=== PATIENT | male | born 1970 | race American Indian/Alaskan Native ===

== ENCOUNTER 2018-11-29 13:25 | Emergency (ER) | payer OTHER ==
[2018-11-29 13:41] VITALS: BP 125/79
--- NOTE | 2018-11-29 13:43 | Event Note ---
ED Screening Note Date of service: 11/29/18 Time: 13:40 ED Screening Note: 48 y/o male comes in for chest pain, abdominal pain and headache times 1 week. Does not have a doctor here. This initial assessment/diagnostic orders/clinical plan/treatment(s) is/are subject to change based on patients health status, clinical progression and re- assessment by fellow clinical providers in the ED. Further treatment and workup at subsequent clinical providers discretion. Patient/guardian urged not to elope from the ED as their condition may be serious if not clinically assessed and managed. Initial orders include:
[2018-11-29 14:01] LABS: Basophils % (Auto) 0.7 % (0.0-1.8); Eosinophils % (Auto) 0.5 % (0.0-4.3); Hemoglobin 14.5 gm/dl (11.8-15.2); Lymphocytes # (Auto) 2.6 K/mm3 (1.2-5.4); Lymphocytes % (Auto) 47.6 % (13.4-35.0); Mean Corpuscular HGB Conc 33 % (32-34); Mean Corpuscular Volume 85 fl (84-94); Monocytes # (Auto) 0.5 K/mm3 (0.0-0.8); Monocytes % (Auto) 9.4 % (0.0-7.3); Platelet Count 230 K/mm3 (140-440); Red Cell Distribution Width 14.5 % (13.2-15.2)
--- NOTE | 2018-11-29 14:12 | XRay Report ---
CHEST 2 VIEWS INDICATION / CLINICAL INFORMATION: Back Pain. COMPARISON: None available. FINDINGS: SUPPORT DEVICES: None. HEART / MEDIASTINUM: No significant abnormality. LUNGS / PLEURA: No significant pulmonary or pleural abnormality. No pneumothorax. ADDITIONAL FINDINGS: No significant additional findings. IMPRESSION: 1. No acute findings. Signer Name: Nando Cerna MD Signed: 11/29/2018 2:07 PM Workstation Name: [id number]
[2018-11-29 14:28] LABS: Alanine Aminotransferase 36 units/L (7-56); Albumin 4.3 g/dL (3.9-5); BUN/Creatinine Ratio 14; Blood Urea Nitrogen 14 mg/dL (9-20); Calcium 9.5 mg/dL (8.4-10.2); Hemolysis Index 14
--- NOTE | 2018-11-29 15:51 | Emergency Department Report ---
ED General Adult HPI - General Chief complaint: Pain General Stated complaint: CHEST PAIN Time Seen by Provider: 11/29/18 15:39 Source: patient Mode of arrival: Ambulatory Limitations: No Limitations - History of Present Illness Initial comments: Patient is a 48-year-old male with no significant past medical history. Patient presented to the ER complaining of generalized body pain headache, chest pain and epigastric abdominal pain. Patient stated that his epigastric pain increase when he is hungry. Patient denied any nausea or vomiting or diarrhea. No fever or chills. - Related Data Allergies Allergy/AdvReac Type Severity Reaction Status Date / Time No Known Allergies Allergy Unverified 11/29/18 13:26 ED Review of Systems ROS: Stated complaint: CHEST PAIN Other details as noted in HPI Comment: All other systems reviewed and negative Constitutional: denies: chills, fever Respiratory: denies: cough, orthopnea, shortness of breath, SOB with exertion Cardiovascular: chest pain (diffuse, sharp on and off was no radiation.) Gastrointestinal: denies: abdominal pain, nausea Musculoskeletal: denies: back pain Neurological: headache, weakness. denies: numbness, paresthesias, confusion, abnormal gait ED Past Medical Hx - Past Medical History Previous Medical History?: No - Surgical History Past Surgical History?: No - Social History Smoking Status: Never Smoker Substance Use Type: None ED Physical Exam - General Limitations: No Limitations General appearance: alert, in no apparent distress - Head Head exam: Present: atraumatic, normocephalic, normal inspection - Eye Eye exam: Present: normal appearance, PERRL - ENT ENT exam: Present: normal exam, normal orophraynx, mucous membranes moist - Neck Neck exam: Present: normal inspection, full ROM. Absent: tenderness, meningismus, lymphadenopathy, thyromegaly - Respiratory Respiratory exam: Present: normal lung sounds bilaterally - Cardiovascular Cardiovascular Exam: Present: regular rate, normal rhythm, normal heart sounds - GI/Abdominal GI/Abdominal exam: Present: soft, normal bowel sounds. Absent: distended, tenderness, guarding, rebound, rigid, organomegaly, pulsatile mass, hernia - Extremities Exam Extremities exam: Present: normal inspection, full ROM, normal capillary refill - Back Exam Back exam: Present: normal inspection, full ROM. Absent: CVA tenderness (R), CVA tenderness (L), muscle spasm, paraspinal tenderness, vertebral tenderness - Neurological Exam Neurological exam: Present: alert, oriented X3, CN II-XII intact, normal gait, reflexes normal - Skin Skin exam: Present: warm, intact, normal color ED Course Vital Signs 11/29/18 13:40 Temperature 97.8 F Pulse Rate 67 Respiratory 16 Rate Blood Pressure 125/79 O2 Sat by Pulse 100 Oximetry ED Medical Decision Making - Lab Data Result diagrams: 11/29/18 13:46 11/29/18 13:46 - EKG Data -: EKG Interpreted by Id EKG shows normal: sinus rhythm - EKG Data Interpretation: no acute changes - Radiology Data Radiology results: report reviewed Chest x-ray is unremarkable. - Medical Decision Making Patient is a 48-year-old male with no significant past medical history. Patient presented to the ER complaining of generalized body pain headache, chest pain and epigastric abdominal pain. Patient stated that his epigastric pain increase when he is hungry. Patient denied any nausea or vomiting or diarrhea. No fever or chills. Labs reviewed and is unremarkable. EKG is unremarkable. Chest x-ray is negative for acute finding. Patient's symptoms most likely related to a viral syndrome. In addition patient and epigastric pain is most likely related to peptic ulcer. Patient advised to avoid spicy food. Patient advised to follow- up with his primary care physician in the next 2-3 days and to return to the ER if symptoms are not improved. Critical care attestation.: If time is entered above; I have spent that time in minutes in the direct care of this critically ill patient, excluding procedure time. ED Disposition Clinical Impression: Abdominal pain, Viral syndrome Disposition: TO HOME OR SELFCARE Is pt being admited?: No Condition: Stable Instructions: Abdominal Pain (ED) Referrals: HELLEN LAMBERT MD [Primary Care Provider] - 3-5 Days
== END 2018-11-29 16:17 | disposition home or self-care (01) ==
LOC: ED 13:25
DX: R10.13 Epigastric pain (principal); B34.9 Viral infection, unspecified
CPT/HCPCS: 36415; 71046; 80053; 84484; 85025; 93005; 93010

== ENCOUNTER 2019-07-03 14:58 | Outpatient (CLI) | payer BC ==
[2019-07-03 15:39] LABS: Basophils % (Auto) 0.7 % (0.0-1.8); Eosinophils % (Auto) 0.3 % (0.0-4.3); Hemoglobin 14.6 gm/dl (11.8-15.2); Lymphocytes # (Auto) 2.5 K/mm3 (1.2-5.4); Lymphocytes % (Auto) 42.7 % (13.4-35.0); Mean Corpuscular HGB Conc 33 % (32-34); Mean Corpuscular Volume 83 fl (84-94); Monocytes # (Auto) 0.5 K/mm3 (0.0-0.8); Monocytes % (Auto) 7.7 % (0.0-7.3); Platelet Count 234 K/mm3 (140-440); Red Blood Count 5.43 M/mm3 (3.65-5.03); Red Cell Distribution Width 14.8 % (13.2-15.2)
[2019-07-03 15:40] LABS: Alanine Aminotransferase 48 units/L (7-56); Albumin 4.1 g/dL (3.9-5); BUN/Creatinine Ratio 12; Blood Urea Nitrogen 13 mg/dL (9-20); Calcium 9.4 mg/dL (8.4-10.2); Hemolysis Index 7; LDL Cholesterol,Direct 253 mg/dL (50-130)
[2019-07-03 15:51] LABS: Chol/HDL Ratio 4.95 %; HDL Cholesterol 68 mg/dL (40-59)
== END 2019-07-03 14:59 | disposition home or self-care (01) ==
LOC: LAB 14:58
PROVIDERS: ATTEND Family Medicine
DX: Z00.00 Encounter for general adult medical examination without abnormal findings (principal); Z12.5 Encounter for screening for malignant neoplasm of prostate; Z79.899 Other long term (current) drug therapy
CPT/HCPCS: 36415; 80053; 80061; 84153; 85025

== ENCOUNTER 2021-03-03 15:36 | Outpatient (CLI) | payer BC ==
[2021-03-03 17:10] LABS: Basophils % (Auto) 0.6 % (0.0-1.8); Eosinophils % (Auto) 0.9 % (0.0-4.3); Hematocrit 44.6 % (35.5-45.6); Hemoglobin 14.2 gm/dl (11.8-15.2); Lymphocytes # (Auto) 2.6 K/mm3 (1.2-5.4); Lymphocytes % (Auto) 47.6 % (13.4-35.0); Mean Corpuscular HGB Conc 32 % (32-34); Mean Corpuscular Volume 82 fl (84-94); Monocytes # (Auto) 0.4 K/mm3 (0.0-0.8); Platelet Count 241 K/mm3 (140-440); Red Blood Count 5.41 M/mm3 (3.65-5.03); Red Cell Distribution Width 15.2 % (13.2-15.2)
[2021-03-03 17:28] LABS: Alanine Aminotransferase 32 units/L (7-56); Albumin 4.4 g/dL (3.9-5); BUN/Creatinine Ratio 11; Blood Urea Nitrogen 11 mg/dL (9-20); Calcium 9.5 mg/dL (8.4-10.2); Chol/HDL Ratio 4.12 %; HDL Cholesterol 72 mg/dL (40-59); Hemolysis Index 8; LDL Cholesterol,Direct 216 mg/dL (50-130)
== END 2021-03-03 15:37 | disposition home or self-care (01) ==
LOC: LAB 15:36
PROVIDERS: ATTEND Internal Medicine
DX: Z00.00 Encounter for general adult medical examination without abnormal findings (principal); Z83.3 Family history of diabetes mellitus
CPT/HCPCS: 36415; 80053; 80061; 83036; 84153; 84443; 85025

== ENCOUNTER 2021-05-03 05:52 | Day surgery (SDC) | payer BC ==
[2021-05-03] MEDS ORDERED: LACTATED RINGERS 1,000 ML IV SCH (06:00)
[2021-05-03] MEDS ORDERED: MIDAZOLAM 2 MG/2 ML INJ IV NR (06:00)
[2021-05-03] MEDS ORDERED: propofoL 200 MG/20 ML VIAL IV ONE (07:09)
[2021-05-03] MEDS ORDERED: LIDOCAINE MPF (2%) 20 MG/1 ML VIAL 5 ML ONE (07:09)
[2021-05-03] MEDS ORDERED: NEOMY 3.5 MG/BACIT 400 UNITS/POLY B 5000 UNITS OINT 15 GM TP ONE (07:09)
[2021-05-03] MEDS ORDERED: fentaNYL 100 MCG/2 ML INJ ONE (07:09)
[2021-05-03] MEDS ORDERED: BUPIVACAINE/PF (0.25%) 2.5 MG/ML 30 ML VIAL INFILTRATI ONE (07:09)
--- NOTE | 2021-05-03 07:34 | Anesthesia Consultation ---
Anesthesia Consult and Med Hx Date of service: 05/03/21 - Airway Anesthetic Teeth Evaluation: Good ROM Head & Neck: Adequate Mental/Hyoid Distance: Adequate Mallampati Class: Class III Intubation Access Assessment: Possibly Difficult - Pre-Operative Health Status ASA Pre-Surgery Classification: ASA1 Proposed Anesthetic Plan: General - Pulmonary Hx Smoking: No Hx Respiratory Symptoms: No - Cardiovascular System Hx Hypertension: No Hx Heart Attack/AMI: No - Central Nervous System CVA: No - Gastrointestinal Hx Gastroesophageal Reflux Disease: Yes (well controlled) - Endocrine Hx Renal Disease: No Hx Liver Disease: No Hx Insulin Dependent Diabetes: No Hx Non-Insulin Dependent Diabetes: No Hx Thyroid Disease: No - Additional Comments Anesthesia Medical History Comments: No hx anesthetic complications.
--- NOTE | 2021-05-03 07:34 | Anesthesia Day of Surgery ---
Anesthesia Day of Surgery - Day of Surgery Patient Examined: Yes Patient H&P Reviewed: Yes Patient is NPO: Yes
[2021-05-03] MEDS ORDERED: ceFAZolin/STERILE WATER 2 GM/20 ML SYRINGE IV NR (07:40)
[2021-05-03] MEDS ORDERED: ceFAZolin/Water 2 GM/20 ML 2 GM/20 ML SYRINGE IV ONE (07:43)
[2021-05-03] MEDS ORDERED: dexAMETHasone 20 MG/5 ML VIAL ONE (07:56)
[2021-05-03] MEDS ORDERED: KETOROLAC 30 MG/1 ML INJ ONE (07:56)
[2021-05-03] MEDS ORDERED: ONDANSETRON 4 MG/2 ML INJ IV PRN (08:00)
[2021-05-03] MEDS ORDERED: HYDROmorphone 1 MG/1 ML INJ IV PRN (08:00)
[2021-05-03] MEDS ORDERED: oxyCODONE /ACETAMINOPHEN 5-325MG TAB PO PRN (08:00)
[2021-05-03] MEDS ORDERED: SODIUM CHLORIDE 0.9% IRR 1,500 ML BOTTLE IR ONE (08:45)
--- NOTE | 2021-05-03 09:01 | Post Operative Note ---
Date of procedure: 05/03/21 Pre-op diagnosis: balanitis Post-op diagnosis: same Findings: large amount skin Procedure: circ Anesthesia: GETA Surgeon: DENNIS MCDONOUGH Estimated blood loss: minimal Pathology: list (foreskin) Specimen disposition: to lab Condition: stable Disposition: PACU
--- NOTE | 2021-05-03 09:02 | Discharge Summary ---
Short Stay Discharge Plan Activity: other (no sex 2 weeks ) Weight Bearing Status: Full Weight Bearing Diet: regular, low fat, low cholesterol, low salt Wound: open to air (remove dressing at 8 pm tonight ) Special Instructions: other (neosporin bid ) Follow up with: YANA COLBERT MD [Primary Care Provider] - 7 Days DENNIS MCDONOUGH MD [Staff Physician] - 7 Days
[2021-05-03 09:54] VITALS: BP 126/81
--- NOTE | 2021-05-03 10:17 | Post Anesthesia Evaluation ---
- Post Anesthesia Evaluation Patient Participated: Yes Airway Patent: Yes Stable Respiratory Function: Yes Nausea/Vomiting: No Temp > 96.8F: Yes Pain Manageable: Yes Adequeate Hydration: Yes Anesthesia Complications: No
--- NOTE | 2021-05-03 12:00 | Operative Report ---
DATE OF SURGERY: 05/03/2021 PREOPERATIVE DIAGNOSES: Severe excess skin and balanitis. POSTOPERATIVE DIAGNOSES: Severe excess skin and balanitis. PROCEDURE: Circumcision, sleeve technique. SURGEON: Dav Hinojosa MD ANESTHESIA: General. FINDINGS: This is a gentleman with a large amount of excess foreskin and elects for circumcision. All risks and implications were discussed. DESCRIPTION OF PROCEDURE: The patient was brought to the operating room and placed on the operating table. Following induction of anesthesia, placed in supine position, prepped and draped in usual sterile fashion. Two circumferential incisions were marked, and the incisions were made. This was connected dorsally. Large amount of excess skin was excised. Sutures were placed at 12, 3, 6 o'clock position and each suture segment was closed with interrupted 3-0 chromic. Hemostasis was obtained with the Bovie and 3-0 Vicryl ties as needed. The patient tolerated the procedure well. No significant complication, brought to recovery in stable condition. Minimal blood loss. TID: [id number] RECEIPT: ALEXIS/TAB
== END 2021-05-03 10:17 | disposition home or self-care (01) ==
LOC: OR 05:52
PROVIDERS: ATTEND Urology
DX: N48.1 Balanitis (principal); N48.89 Other specified disorders of penis; K21.9 Gastro-esophageal reflux disease without esophagitis; Z79.899 Other long term (current) drug therapy; Z98.890 Other specified postprocedural states
CPT/HCPCS: 54161; 88304; J0690; J1100; J1885; J2405; J2704; J3010; J3490; J7120